=== PATIENT | female | born 1950 | race Hispanic/Latino ===

== ENCOUNTER 2020-12-03 10:35 | Emergency (ER) | payer MEDICARE, OTHER ==
[2020-12-03 12:19] VITALS: BP 143/69
[2020-12-03] MEDS ORDERED: DOCUSATE SODIUM 100 MG/10 ML ORAL LIQD PO ONE (14:40)
--- NOTE | 2020-12-03 15:12 | Emergency Department Report ---
ED ENT HPI - General Chief complaint: Earache Stated complaint: EAR PAIN Time Seen by Provider: 12/03/20 14:40 Source: patient Mode of arrival: Ambulatory Limitations: No Limitations - History of Present Illness Initial comments: Patient is a 70-year-old female presents emergency room complaints of bilateral ear pain that began a couple days ago. She states that she has muffled hearing in the right ear. She states that her used some [id number] earwax removal drops but she has not had any relief. She denies any ear bleeding or drainage. She denies any fever, nausea, vomiting, diarrhea, cough, shortness of breath. She reports that she has a prior history of cancer. No allergies to medications. - Related Data Previous Rx's Medication Instructions Recorded Last Taken Type Ofloxacin 0.3% [Floxin 0.3% Otic] 10 ml AU DAILY 7 Days #1 bottle 12/03/20 Unknown Rx Allergies Allergy/AdvReac Type Severity Reaction Status Date / Time No Known Allergies Allergy Verified 12/03/20 12:20 ED Dental HPI - General Chief complaint: Earache Stated complaint: EAR PAIN Time Seen by Provider: 12/03/20 14:40 Source: patient Mode of arrival: Ambulatory Limitations: No Limitations - Related Data Previous Rx's Medication Instructions Recorded Last Taken Type Ofloxacin 0.3% [Floxin 0.3% Otic] 10 ml AU DAILY 7 Days #1 bottle 12/03/20 Unknown Rx Allergies Allergy/AdvReac Type Severity Reaction Status Date / Time No Known Allergies Allergy Verified 12/03/20 12:20 ED Review of Systems ROS: Stated complaint: EAR PAIN Other details as noted in HPI Comment: All other systems reviewed and negative ED Past Medical Hx - Medications Home Medications: Home Medications Medication Instructions Recorded Confirmed Last Taken Type Ofloxacin 0.3% [Floxin 0.3% Otic] 10 ml AU DAILY 7 Days #1 bottle 12/03/20 Unknown Rx ED Physical Exam - General Limitations: No Limitations General appearance: alert, in no apparent distress - Head Head exam: Present: atraumatic, normocephalic - Eye Eye exam: Present: normal appearance - ENT ENT exam: Present: normal orophraynx, mucous membranes moist, other (bilateral cerumen impactions) - Neurological Exam Neurological exam: Present: alert, oriented X3 - Psychiatric Psychiatric exam: Present: normal affect, normal mood - Skin Skin exam: Present: warm, dry, intact ED Course Vital Signs 12/03/20 12:18 Temperature 98 F Pulse Rate 63 Respiratory 18 Rate Blood Pressure 143/69 [Left] O2 Sat by Pulse 100 Oximetry - Ear Wax Removal Both Ears Cerumenolytic Used: Colace Ear Canal Irrigated by: other (PA-C) Ear Canal Irrigated With: warm saline using syringe/angiocath Ear Canal(s) Curettaged: plastic loops Results: Re-examined: some cerumen remains Additional Comments: Verbal consent obtained by patient Colace instilled into the bilateral ear canals and waited approximately 20 minutes, used a 18-gauge syringe for irrigation, no earwax was removed, used a plastic loop curette, able to remove moderate amount of wax from the right ear canal, wax is very hard and firm, there is a small amount of bleeding in the canal, stopped removal and will have patient follow-up with ENT for the rest of wax removal from the right canal, attempted to use loop curette for left canal removal, wax is very hard and adhered to the canal, unable to remove wax, will refer to ENT for wax removal ED Medical Decision Making - Medical Decision Making Patient is a 70-year-old female presents emergency room complaints of bilateral ear pain that began a couple days ago. She states that she has muffled hearing in the right ear. She states that her used some [id number] earwax removal drops but she has not had any relief. She denies any ear bleeding or drainage. She denies any fever, nausea, vomiting, diarrhea, cough, shortness of breath. She reports that she has a prior history of cancer. No allergies to medications. Vitals are normal. On exam: Bilateral cerumen impactions. Procedure performed per procedure note without complete wax removal, patient be referred to ENT for full wax removal. Advised patient Please use medication as prescribed. Follow-up with a hearing aid technician for complete wax removal. Return to emergency room for any new or worsening symptoms. Critical care attestation.: If time is entered above; I have spent that time in minutes in the direct care of this critically ill patient, excluding procedure time. ED Disposition Clinical Impression: Cerumen impaction Qualifiers: Laterality: bilateral Qualified Code(s): H61.23 - Impacted cerumen, bilateral Disposition: 01 HOME / SELF CARE / HOMELESS Is pt being admited?: No Does the pt Need Aspirin: No Condition: Stable Instructions: Earwax Buildup, Adult Additional Instructions: Please use medication as prescribed. Follow-up with a hearing aid technician for complete wax removal. Return to emergency room for any new or worsening symptoms. Prescriptions: Ofloxacin 0.3% [Floxin 0.3% Otic] 10 ml AU DAILY 7 Days #1 bottle Referrals: KIERAN SANCHEZ MD [Primary Care Provider] - 3-5 Days CHESTER MULLIGAN MD [Staff Physician] - 3-5 Days LANDON HEADLEY MD [Referring] - 3-5 Days Time of Disposition: 16:13 Print Language: SOMALI
== END 2020-12-03 16:20 | disposition home or self-care (01) ==
LOC: ED 10:35
DX: H61.23 Impacted cerumen, bilateral (principal)
CPT/HCPCS: 99282